=== PATIENT | female | born 1970 ===

== ENCOUNTER 2018-02-09 11:42 | Emergency (ER) | payer OTHER ==
[2018-02-09] MEDS ORDERED: DiphenhydrAMINE 50 mg/ml Inj IVP STA (12:01)
[2018-02-09] MEDS ORDERED: Sodium Chloride 0.9% 1,000 ML IV ONE (12:01)
--- NOTE | 2018-02-09 12:03 | C.PDOC ---
History Of Present Illness Patient presents to ED c/o persistent right sided headache for the past 4 days. She admits to history of migraines, states she typically takes Motrin and Excedrin but those meds have no helped. Current headache is similar to prior migraine headaches. She also states she has h/o right sided "brain cyst", has not seen her neurosurgeon in approx 3 years (name unknown). She denies head injury, LOC, visual changes, facial droop, extremity weakness, sensory changes, slurred speech, gait changes, dizziness, fever. Time Seen by Provider: 02/09/18 11:50 Chief Complaint (Nursing): Headache History Per: Patient History/Exam Limitations: no limitations Onset/Duration Of Symptoms: Days (4) Current Symptoms Are (Timing): Still Present Severity: Moderate Quality: "Pain" Preceeding Symptoms: Known Migraine Symptoms Associated Symptoms: Photophobia. denies: Blurred Vision, Nausea Past Medical History Reviewed: Historical Data, Nursing Documentation, Vital Signs Vital Signs: Last Vital Signs Temp 98.8 F 02/09/18 13:32 Pulse 67 02/09/18 13:32 Resp 18 02/09/18 13:32 BP 100/66 02/09/18 13:32 Pulse Ox 100 02/09/18 13:32 - Medical History PMH: Migraine Other PMH: "brain cyst" - [facility] Procedures BILAT ENDOS OCC TUBE NEC (02/17/98) D & C NEC (02/17/98) MANUAL ASSIST DELIV NEC (01/15/98) Family History: States: No Known Family Hx Review Of Systems Constitutional: Negative for: Fever, Chills Cardiovascular: Negative for: Chest Pain Respiratory: Negative for: Shortness of Breath Gastrointestinal: Negative for: Nausea, Vomiting Skin: Negative for: Rash Neurological: Positive for: Headache. Negative for: Weakness, Numbness, Incoordination, Change in Speech, Confusion, Seizures, Altered Mental Status, Dizziness Physical Exam - Physical Exam Appears: Well, Non-toxic, Other (in mild pain) Skin: Normal Color, Warm, Dry, No Rash Head: Atraumatic, Normacephalic Eye(s): bilateral: Normal Inspection ((+) photophobia), PERRL, EOMI Oral Mucosa: Moist Neck: Supple, Other (no meningismus) Cardiovascular: Rhythm Regular Respiratory: Normal Breath Sounds, No Rales, No Rhonchi, No Wheezing Neurological/Psych: Oriented x3, Normal Speech, Normal Cognition, Normal Cranial Nerves, No Cerebellar Signs, Normal Motor, Normal Sensation, No Dysarthria, No Romberg Gait: Steady ED Course And Treatment O2 Sat by Pulse Oximetry: 98 (RA) Pulse Ox Interpretation: Normal - CT Scan/US ct head Other Rad Studies (CT/US): Read By Radiologist, Radiology Report Reviewed CT/US Interpretation: Accession No. : [id number]. Patient Name / ID : ELISABET CARPENTER / [id number]. Exam Date : 02/09/2018 12:38:39 ( Approved ). Study Comment : Sex / Age : F / 48Y. Creator : Vianca Cardona. Dictator : Araceli Carroll MD. Parking Lot Attendant : Constitutional Law Professor : Araceli Carroll MD. Approver2 : Report Date : 02/09/2018 12:43:08. My Comment : . PROCEDURE: CT HEAD WITHOUT CONTRAST. HISTORY: Persistent right-sided headache. COMPARISON: 04/09/2012. TECHNIQUE: Axial computed tomography images were obtained through the head/brain without intravenous contrast. Radiation dose: Total exam DLP = 826.12 mGy-cm. This CT exam was performed using one or more of the following dose reduction techniques: Automated exposure control, adjustment of the mA and/or kV according to patient size, and/or use of iterative reconstruction technique. FINDINGS: HEMORRHAGE: No intracranial hemorrhage. BRAIN: There is redemonstration of 82.8 X 4.2 X 3.1 CM CSF density lesion in the right temporal lobe with apparent communication with the atrium of the right lateral ventricle. There is no mass effect or abnormal extra-axial fluid collection. There is no territorial infarction. VENTRICLES: The ventricles are normal in size, shape and configuration. CALVARIUM: Unremarkable. PARANASAL SINUSES: Unremarkable as visualized. No significant inflammatory changes. MASTOID AIR CELLS: Unremarkable as visualized. No inflammatory changes. OTHER FINDINGS: None. IMPRESSION: 1. No change since prior examination. 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 An MRI of the brain with and without intravenous contrast on a nonemergent basis would be helpful for definitive evaluation. 2. No evidence of intracranial mass, herniation or hydrocephalus. Progress Note: Patient given IV NS bolus, IV Reglan and IV Benadryl. CT scan of head ordered and reviewed. Reevaluation Time: 13:10 Reassessment Condition: Improved (On reassessment, patient is resting comfortably, states she feels better and her headache has resolved. Ct scan unchanged from prior. Patient instructed to follow up with her neurosurgeon within 1 week without fail, and was also given follow up info for our neurosurgery bronzer. She understands she needs an outpatient MRI, and also that she should return to ED if symptoms worsen.) Disposition Counseled Patient/Family Regarding: Studies Performed, Diagnosis, Need For Followup, Rx Given - Disposition Referrals: John Mcmahon MD [Staff Provider] - Saturnino Mcmahon MD [Staff Provider] - Bin Sol MD [Staff Provider] - Disposition: HOME/ ROUTINE Disposition Time: 13:10 Condition: STABLE Additional Instructions: FOLLOW UP WITH NEUROSURGEON WITHIN 1 WEEK USE MEDICATION NEEDED RETURN TO ER IF SYMPTOMS WORSEN Instructions: Migraine Headache (DC), Cysts in the Brain Forms: [employer] (Bhutanese) Print Language: VINCENTIAN - Clinical Impression Clinical Impression: Right-sided headache, Porencephalic cyst
[2018-02-09] MEDS ORDERED: DiphenhydrAMINE 50 mg/ml Inj ONE (12:09)
[2018-02-09] MEDS ORDERED: Sodium Chloride 0.9% 1,000 ML ONE (12:10)
--- NOTE | 2018-02-09 12:56 | CT ---
PROCEDURE: CT HEAD WITHOUT CONTRAST. HISTORY: Persistent right-sided headache COMPARISON: 04/09/2012. TECHNIQUE: Axial computed tomography images were obtained through the head/brain without intravenous contrast. Radiation dose: Total exam DLP = 826.12 mGy-cm. This CT exam was performed using one or more of the following dose reduction techniques: Automated exposure control, adjustment of the mA and/or kV according to patient size, and/or use of iterative reconstruction technique. FINDINGS: HEMORRHAGE: No intracranial hemorrhage. BRAIN: There is redemonstration of 82.8 X 4.2 X 3.1 CM CSF density lesion in the right temporal lobe with apparent communication with the atrium of the right lateral ventricle. There is no mass effect or abnormal extra-axial fluid collection. There is no territorial infarction. VENTRICLES: The ventricles are normal in size, shape and configuration. CALVARIUM: Unremarkable. PARANASAL SINUSES: Unremarkable as visualized. No significant inflammatory changes. MASTOID AIR CELLS: Unremarkable as visualized. No inflammatory changes. OTHER FINDINGS: None. IMPRESSION: 1. No change since prior examination. 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 An MRI of the brain with and without intravenous contrast on a nonemergent basis would be helpful for definitive evaluation. 2. No evidence of intracranial mass, herniation or hydrocephalus.
[2018-02-09 13:33] VITALS: BP 100/66; PULSE 67; RESP 18; TEMP 98.8
[2018-02-12 12:47] VITALS: O2SAT 98
== END 2018-02-09 13:46 | disposition home or self-care (01) ==
LOC: C.ER 11:42
DX: R51 Headache (principal); G93.0 Cerebral cysts
CPT/HCPCS: 70450; 96361; 96374; 96375; 99285; J1200; J2765; J7030

== ENCOUNTER 2018-11-27 19:46 | Emergency (ER) | payer OTHER ==
--- NOTE | 2018-11-27 20:52 | C.PDOC ---
History Of Present Illness 48 year olds female with Hx of anxiety, chronic pain, intracranial cyst, and hyperlipidemia presents with chest pain/tightness and feeling anxious. she states "she feels warm all over" and "wants my whole body checked" Denies fever or other complaints. Time Seen by Provider: 11/27/18 20:47 Chief Complaint (Nursing): Chest Pain History Per: Patient History/Exam Limitations: no limitations Onset/Duration Of Symptoms: Hrs Current Symptoms Are (Timing): Still Present Quality: Tightness Exacerbating Factors: None Alleviating Factors: None Recent travel outside of the [place]: No Past Medical History Reviewed: Historical Data, Nursing Documentation, Vital Signs Vital Signs: Last Vital Signs Temp 98.7 F 11/27/18 20:00 Pulse 82 11/27/18 20:00 Resp 16 11/27/18 20:00 BP 110/74 11/27/18 20:00 Pulse Ox 99 11/27/18 20:00 - Medical History PMH: Anxiety, Migraine - [facility] Procedures BILAT ENDOS OCC TUBE NEC (02/17/98) D & C NEC (02/17/98) MANUAL ASSIST DELIV NEC (01/15/98) Family History: States: No Known Family Hx - Social History Hx Alcohol Use: No Hx Substance Use: No - Immunization History Hx Tetanus Toxoid Vaccination: No Hx Influenza Vaccination: No Hx Pneumococcal Vaccination: No Review Of Systems Constitutional: Negative for: Fever, Chills Cardiovascular: Negative for: Chest Pain, Palpitations Respiratory: Negative for: Cough, Shortness of Breath Gastrointestinal: Positive for: Abdominal Pain. Negative for: Nausea, Vomiting, Diarrhea Neurological: Negative for: Weakness, Numbness Psych: Positive for: Anxiety Physical Exam - Physical Exam Appears: Non-toxic, Other (Mildly anxious) Skin: Normal Color, Warm Head: Atraumatic, Normacephalic Eye(s): bilateral: Normal Inspection Oral Mucosa: Moist Neck: Normal, Supple Chest: Symmetrical, No Tenderness Cardiovascular: Rhythm Regular Respiratory: Normal Breath Sounds, No Rales, No Rhonchi, No Wheezing Gastrointestinal/Abdominal: Soft, No Tenderness Neurological/Psych: Oriented x3, Normal Speech ED Course And Treatment - Laboratory Results Result Diagrams: 11/27/18 21:14 11/27/18 21:14 ECG: Interpreted By Me, Viewed By Me ECG Rhythm: Sinus Rhythm ECG Interpretation: Normal Interpretation Of ECG: No ST/T wave changes Rate From EC O2 Sat by Pulse Oximetry: 99 (Room air) Pulse Ox Interpretation: Normal Medical Decision Making Medical Decision Making: atypcial symptoms. pt states symptoms "anxiety" in ner in nad. no cardiac hx. Plan: * EKG * Blood work * CXR * UA low heart score. symptoms started yesterdya. in er in nad. she later rpeorts mild migraine. requests reglan benadryl. declines observation and monitoring. asks for immediate dc. declines imaging. known cyst. Disposition - Disposition Referrals: [facility] [Outside] [facility] [Outside] Darin Stiles MD [Staff Provider] - Danilo Peres MD [Staff Provider] - Disposition: HOME/ ROUTINE Disposition Time: 23:00 Condition: STABLE Additional Instructions: follow up with your doctor/specialist. return to er with worsening symptoms or concerns. Instructions: Chest Pain, Migraine Headache (DC) Forms: [employer] (Citizen Of [place]) - Clinical Impression Clinical Impression: Chest pain, Headache - Scribe Statement The provider has reviewed the documentation as recorded by the Scribe Emmett Solares All medical record entries made by the Scribe were at my direction and pers onally dictated by me. I have reviewed the chart and agree that the record accurately reflects my personal performance of the history, physical exam, medical decision making, and the department course for this patient. I have also personally directed, reviewed, and agree with the discharge instructions and disposition.
[2018-11-27 21:18] LABS: BASO % 0.4 % (0.0-2.0); EOS # 0.1 K/uL (0.0-0.7); EOS % 0.9 % (0.0-4.0); HEMOGLOBIN 12.3 g/dL (11.0-16.0); LYMPH # 1.7 K/uL (1.0-4.3); LYMPH % 18.7 % (20.0-40.0); MEAN CELL VOLUME 80.9 fL (81.0-99.0); MEAN CORPUSCULAR HEMOGLOBIN 26.1 pg (27.0-31.0); MEAN CORPUSCULAR HGB CONC 32.3 g/dL (33.0-37.0); MEAN PLATELET VOLUME 7.9 fL (7.2-11.7); MONO # 0.7 K/uL (0.0-0.8); MONO % 7.6 % (0.0-10.0); NEUT # 6.6 K/uL (1.8-7.0); NEUT % 72.4 % (50.0-75.0); RBC 4.69 Mil/uL (3.80-5.20); RED CELL DISTRIBUTION WIDTH 15.6 % (11.5-14.5); WHITE BLOOD COUNT 9.1 K/uL (4.8-10.8)
[2018-11-27 21:31] LABS: INR 1.1; PROTHROMBIN TIME 11.9 SECONDS (9.7-12.2)
[2018-11-27 21:34] LABS: ALB/GLOB RATIO 1.4 (1.0-2.1); ALBUMIN 4.6 g/dL (3.5-5.0); ALT/SGPT 14 U/L (9-52); AST/SGOT 19 U/L (14-36); BLOOD UREA NITROGEN 7 mg/dL (7-17); GFR NON-AFRICAN AMERICAN > 60
[2018-11-27 21:39] LABS: SQUAMOUS EPITHIAL < 1 /hpf (0-5); URINE BILIRUBIN NEGATIVE (NEGATIVE); URINE BLOOD 3+ (NEGATIVE); URINE CLARITY Clear (Clear); URINE COLOR Straw (YELLOW); URINE GLUCOSE (UA) NORMAL (Normal); URINE LEUKOCYTE ESTERASE NEG Leu/uL (Negative); URINE PROTEIN NEGATIVE (NEGATIVE); URINE UROBILINOGEN NORMAL mg/dL (0.2-1.0)
[2018-11-27 21:41] LABS: HCG,QUALITATIVE URINE NEGATIVE (NEGATIVE)
[2018-11-27] MEDS ORDERED: DiphenhydrAMINE 50 mg/ml Inj IVP STA (21:56)
[2018-11-27] MEDS ORDERED: DiphenhydrAMINE 50 mg/ml Inj IM STA (22:13)
[2018-11-27] MEDS ORDERED: DiphenhydrAMINE 50 mg/ml Inj ONE (22:19)
[2018-11-27 22:28] VITALS: RESP 18
[2018-11-27 23:01] VITALS: O2SAT 99
[2018-11-27 23:18] VITALS: BP 128/76; PULSE 74; TEMP 98.2
--- NOTE | 2018-11-28 11:04 | RAD ---
HISTORY: chest pain COMPARISON: None available. TECHNIQUE: Chest PA and lateral FINDINGS: LUNGS: No focal consolidation. Please note that chest x-ray has limited sensitivity for the detection of pulmonary masses. PLEURA: No significant pleural effusion identified. No definite pneumothorax . CARDIOVASCULAR: Heart size appears within normal limits. Faint atherosclerotic aorta. OSSEOUS STRUCTURES: Mild degenerative changes. VISUALIZED UPPER ABDOMEN: Unremarkable. OTHER FINDINGS: None. IMPRESSION: No focal consolidation.
--- NOTE | 2018-11-28 18:20 | CARD ---
APPROVED REPORT Date of service: 11/27/2018 EKG Measurement Heart [id number] <Conclusion> Normal sinus rhythm Normal ECG
== END 2018-11-27 23:13 | disposition home or self-care (01) ==
LOC: C.ER 19:46
DX: R07.9 Chest pain, unspecified (principal); R51 Headache; F41.9 Anxiety disorder, unspecified
CPT/HCPCS: 71046; 80053; 81001; 84484; 84703; 85025; 85610; 85730; 93005; 96372; 99284; J1200; J2765